=== PATIENT | male | born 1940 | race Two or more races ===

== ENCOUNTER 2024-09-30 17:58 | Inpatient (IN) | payer OTHER, MEDICAID ==
[~2024-09-30] VITALS: Ht 182.9 cm; Wt 72.7 kg
--- NOTE | 2024-09-30 18:24 | ED.PDOC ---
General HPI Comments 84 year old male presents to the emergency department via EMS with a chief complaint of urinary retention onset last night around 22:00. Patient states last time he urinated was last night around 22:00, since then has not been able to urinate. Patient is currently experiencing pelvic pain, rates pain 10/10. Denies any PMHx as well as nausea, vomiting, diarrhea, headache, dizziness,hematuria, fevers, chills, blurry vision. No other symptoms or modify ing factors present at this time. Chief Complaint: Urinary Time Seen by MD: 18:05 Reviewed notes: Medications, Allergies Allergies: Coded Allergies: NO KNOWN ALLERGIES (Unverified , 10/01/24) Information Source: Patient, Emergency Med Personnel Mode of Arrival: EMS Severity: Moderate Inability to void: Moderate Timing: Hours Duration: Since onset Has not urinated for: Hours Prehospital treatment: None Onset: Spontaneous Symptoms: Other History of: None Location: Suprapubic Penile discharge: None Modifying factors: None associated signs and symptoms: Other Vital Signs Vital Signs Date Time Temp Pulse Resp B/P (MAP) Pulse Ox O2 Delivery O2 Flow Rate FiO2 09/30/24 18:05 98.7 70 18 142/88 (106) 98 98.7 Physical Exam General: Awake, alert and oriented. No acute distress. Skin: Skin in warm, dry and intact. Appropriate color for ethnicity. HEENT: The head is normocephalic and atraumatic. Conjunctivae are clear without exudates or hemorrhage. Sclera is non-icteric. EOM are intact. No signs of nystagmus. Eyelids are normal in appearance without swelling or lesions. Oral mucosa is pink and moist Neck: The neck is supple with normal range of motion. No JVD. Cardiac: Heart rate and rhythm are normal. No murmurs, gallops, or rubs are auscultated. Respiratory: No signs of respiratory distress. Lung sounds are clear in all lobes bilaterally without rales, rhonchi, or wheezes. Abdominal: Abdomen is soft, with suprapubic tenderness and fullness without distention, guarding or rigidity. Bowel sounds are present and normoactive in all four quadrants. Extremities: Upper and lower extremities are atraumatic in appearance without deformity or edema. Neurological: The patient is awake, alert and oriented to person, place, and time with normal speech. Speech is clear. There is no facial asymmetry. Psychiatric: Appropriate mood and affect. Good judgement and insight. Review of Systems: REVIEW OF SYSTEMS: No fever, no chills, or fatigue HEENT: No sore throat, no earache, no congestion, no neck pain. Cardiac: No chest pain. No palpitations. Lungs: No shortness of breath, no cough. GI: No nausea, no vomiting, no diarrhea, no constipation, no abdominal pain : Positive difficulty urinating, decreased urine output. Positive pelvic pain. No dysuria, frequency, or urgency. No hematuria. Musculoskeletal: No joint pain , no joint swelling, no extremity edema. Skin: No rash, no itching. Neuro: No headache, no dizziness, no weakness Past Medical History PAST MEDICAL HISTORY: Denies Surgical History: Denies all surgeries Family History Family History: Reviewed,noncontributory to illness, No family hx of Cancer, No family hx of DM, No family hx of Heart evy, No family hx of HTN, No family hx ofKidney evy, No family hx of Liver evy, No family hx of Lung evy, No family hx of Stroke Social History Smoker: Non-Smoker Alcohol: Denies ETOH Use Drugs: Denies Drug Use Lives In: Home Was a procedure done? Was a procedure done?: No Differential Diagnosis Kidney stone (Female): N/A Urinary Problem (Male): Bladder Outlet, Bladder Obstruction, Prostatitis, Renal Failure, Urethritis, Urinary Retention, Urolithiasis, UTI, Other X-Ray, Labs, Meds, VS Vital Signs Date Time Temp Pulse Resp B/P (MAP) Pulse Ox O2 Delivery O2 Flow Rate FiO2 09/30/24 18:05 98.7 70 18 142/88 (106) 98 98.7 Lab Test 09/30/24 18:26 Range/Units White Blood Count 10.1 4.4-10.8 10^3/uL Red Blood Count 4.80 4.5-5.90 10^6/uL Hemoglobin 14.2 13.5-17.5 g/dL Hematocrit 42.3 41.0-53.0 % Mean Corpuscular Volume 88.3 80.0-100.0 fL Mean Corpuscular Hemoglobin 29.5 28.0-32.0 pg Mean Corpuscular Hemoglobin Concent 33.4 32.0-36.0 g/dL Red Cell Distribution Width 14.3 11.8-14.3 % Platelet Count 174 140-450 10^3/uL Mean Platelet Volume 8.9 6.9-10.8 fL Neutrophils (%) (Auto) 89.4 H 37.0-80.0 % Lymphocytes (%) (Auto) 5.6 L 10.0-50.0 % Monocytes (%) (Auto) 4.6 0.0-12.0 % Eosinophils (%) (Auto) 0.1 0.0-7.0 % Basophils (%) (Auto) 0.3 0.0-2.0 % Neutrophils # (Auto) 9.0 H 1.6-8.6 10 ^3/uL Lymphocytes # (Auto) 0.6 0.4-5.4 10 ^3/uL Monocytes # (Auto) 0.5 0-1.3 10 ^3/uL Eosinophils # (Auto) 0 0-0.8 10 ^3/uL Basophils # (Auto) 0 0-0.2 10 ^3/uL Nucleated Red Blood Cells 0.0 % Sodium Level 140 136-145 mmol/L Potassium Level 3.9 3.5-5.1 mmol/L Chloride Level 105 98-107 mmol/L Carbon Dioxide Level 23 20-31 mmol/L Anion Gap 12 5-15 Blood Urea Nitrogen 19 9-23 mg/dL Creatinine 1.39 H 0.700-1.30 mg/dL Glomerular Filtration Rate Calc 50 >90 mL/min BUN/Creatinine Ratio 13.7 10.0-20.0 Serum Glucose 143 H 74-106 mg/dL Calcium Level 10.4 8.7-10.4 mg/dL Time of 1ST Reevaluation: 18:35 Reevaluation 1ST: Unchanged Patient Education/Counseling: Need For Follow Up Family Education/Counseling: No Family Present SEPSIS Sepsis Screen Physician Orders Urinalysis (09/30/24 18:04) Bladder Scan (09/30/24 ) Insert Evans Catheter QSHIFT (09/30/24 18:09) Ct Ab Pel Wo Con-No Oral Or Iv (09/30/24 21:52) Vital Signs Date Time Temp Pulse Resp B/P (MAP) Pulse Ox O2 Delivery O2 Flow Rate FiO2 09/30/24 18:05 98.7 70 18 142/88 (106) 98 98.7 Laboratory Tests Test 09/30/24 18:26 White Blood Count 10.1 10^3/uL (4.4-10.8) Departure 1 Departure Time of Disposition: 19:38 Impression: Primary Impression: Urinary retention Additional Impression: TRACY (acute kidney injury) Disposition: 09 ADMITTED INPATIENT Condition: Stable Comments Evans catheter placed in the emergency department Patient admitted to hospitalist service for further treatment, evaluation and monitoring. Critical Care Note Critical Care Time?: No Stability Stability form required: No I personally scribed for FRANK PETTY MD ([email or web address]) on 09/30/24 at 18:24. Electronically submitted by Mary David ([email or web address]). FRANK PETTY MD Sep 30, 2024 18:24
[2024-09-30 18:47] LABS: Hematocrit 42.3 % (41.0-53.0); Hemoglobin 14.2 g/dL (13.5-17.5); Mean Corpuscular Hemoglobin 29.5 pg (28.0-32.0); Mean Corpuscular Volume 88.3 fL (80.0-100.0); Nucleated Red Blood Cells % 0.0 %
[2024-09-30 18:57] LABS: Chloride 105 mmol/L (98-107); Potassium 3.9 mmol/L (3.5-5.1); Sodium 140 mmol/L (136-145)
[2024-09-30 18:58] LABS: Anion Gap 12 (5-15); Carbon Dioxide 23 mmol/L (20-31)
[2024-09-30 19:03] LABS: BUN/Creatinine Ratio 13.7 (10.0-20.0); Blood Urea Nitrogen 19 mg/dL (9-23)
[2024-09-30 19:12] LABS: Calcium 10.4 mg/dL (8.7-10.4); Glucose 143 mg/dL (74-106)
--- NOTE | 2024-09-30 22:39 | DVH ---
Exam: CT CT AB PEL WO CON-NO ORAL OR IV History: urinary retention Comparison Study: None TECHNIQUE: Multidetector CT of the abdomen was performed from lung bases to pubic symphysis. Imaging was performed without IV contrast. Axial, coronal and sagittal multiplanar reformats were obtained fr om the axial data set by the technologist. Radiation Dose Information: CT Dose: CTDI volume is 5.54 mGy. Dose-length product is 321.92 mGy*cm FINDINGS: Evaluation of solid organs is limited due to lack of intravenous contrast use. Findings: Lung Bases: No acute or significant lung base finding. Normal heart size. No pleural or pericardial effusion. Liver: The liver is normal in size. No focal lesions. Gallbladder and Biliary Tree: Unremarkable Spleen: Unremarkable Pancreas: The pancreas is grossly normal in appearance. Adrenal Glands: Unremarkable Kidneys: Mild bilateral hydronephrosis. Bladder: 2.8 by 2.8 cm spiculated bladder calculus. Bladder measures 15.8 x 11.6 x 11.4 cm. Bowel: The stomach is grossly normal in appearance. Small bowel and colon are normal in caliber and d istribution. The appendix is not visualized; however, no secondary findings of acute appendicitis id entified. Ascites: Absent Lymphadenopathy: No mesenteric, retroperitoneal or periportal lymphadenopathy. Abdominal Wall and Mesentery: Unremarkable. Vasculature: The visualized abdominal aorta is normal in size and caliber. Evaluation of abdominal a nd pelvic vessels is limited due to lack of intravenous contrast. Pelvic Organs: Prostate measures 7.3 x 6.9 cm. Correlate with PSA. Musculoskeletal: No aggressive focal bony lesions, acute fractures or dislocation. Soft tissues: Unremarkable IMPRESSION: 1. Mild bilateral hydronephrosis 2. 2.8 x 2.8 cm spiculated bladder calculus. 3. Enlarged prostate measuring 6.9 x 7.3 cm correlate with PSA. 4. Bladder measures 15.8 by 11.4 x 11.6 cm. Radiation optimization: All CT scans at this facility use at least one of these dose optimization rush hniques: automated exposure control mA and/or kV adjustment per patient size (includes targeted exam s where dose is matched to clinical indication) or iterative reconstruction.
[2024-09-30] MEDS ORDERED: ACETAMINOPHEN 325 MG TAB PO PRN (23:30)
[2024-09-30] MEDS ORDERED: MORPHINE SULFATE INJ 2 MG/ml SYRG IV PRN (23:30)
[2024-09-30] MEDS ORDERED: ONDANSETRON HCL 4 MG/2 ML VIAL IV PRN (23:30)
[2024-10-01 00:18] LABS: INR 1.08 (0.9-1.15); Prothrombin Time 11.4 sec (9.3-11.8)
--- NOTE | 2024-10-01 00:21 | DVH ---
CHEST RADIOGRAPH Indication: admission Technique: Single frontal view of the chest was obtained Comparison: None FINDINGS: Lines and Tubes: None Lungs: No focal consolidation. Pleura: No effusion. No pneumothorax. Cardiomediastinal contours: Unremarkable Bones: No acute osseous abnormality. IMPRESSION: 1. No acute cardiopulmonary disease.
[2024-10-01] MEDS: HYDROcodone-ACET 5/325MG TAB PO PRN (03:32)
[2024-10-01 04:31] LABS: Hematocrit 45.3 % (41.0-53.0); Hemoglobin 15.1 g/dL (13.5-17.5); Mean Corpuscular Hemoglobin 29.6 pg (28.0-32.0); Mean Corpuscular Volume 88.5 fL (80.0-100.0); Nucleated Red Blood Cells % 0.0 %
[2024-10-01 04:41] LABS: Chloride 102 mmol/L (98-107); Potassium 4.5 mmol/L (3.5-5.1); Sodium 140 mmol/L (136-145)
[2024-10-01 04:42] LABS: Anion Gap 12 (5-15); Calcium 10.0 mg/dL (8.7-10.4); Carbon Dioxide 26 mmol/L (20-31)
--- NOTE | 2024-10-01 04:46 | DVHHP2 ---
Admitting Diagnosis: Spiculated Bladder Calculus, Acute Urinary Retention History of Present Illness History Source: Patient Exam Limitations: No limitations HPI Mr. Juan Catherine is an 84 year old male with no reported medical history who presents with a chief complaint of urinary retention onset night of Friday 09/29 around 22:00. Patient states since then has not been able to urinate. Patient is currently experiencing pelvic pain, rates pain 10/10. Denies vomiting, diarrhea, headache, dizziness,hematuria, fevers, chills, blurry vision. No other symptoms or modifying factors present at this time. Patient CT abdomen and pelvis resulted 1. Mild bilateral hydronephrosis 2. 2.8 x 2.8 cm spiculated bladder calculus. 3. Enlarged prostate measuring 6.9 x 7.3 cm correlate with PSA. 4. Bladder measures 15.8 by 11.4 x 11.6 cm. Patient admitted for further evaluation, treatment and urology consultation. Home Meds No Active Prescriptions or Reported Meds Past Medical History Cardiac: No pertinent Hx Pulmonary: No pertinent Hx Central Nervous System: No pertinent Hx GI: No pertinent Hx Hemotology/Oncology: No pertinent Hx Hepatobiliary: No pertinent Hx Psychiatric: No pertinent Hx Musculoskeletal: No pertinent Hx Rheumotologic: No pertinent Hx Infectious Disease: No peritnent Hx ENT: No pertinent Hx Renal/: No pertinent Hx Endocrine: No pertinent Hx Dermatology: No pertinent Hx Smoker: No Hx (Negative) Alocohol: None Drugs: None Domestic Violence: Neg Review of Systems Constitutional: No symptom reported Ears, Nose, & Throat: No symptom reported Eyes: No symptom reported Pulmonary/Respiratory: No symptom reported Cardiovascular: No symptom reported Gastrointestinal: Nausea, Other (lower abdominal pain, pressure ) Genitourinary: Dysuria, Retention Musculoskeletal: No symptom reported Skin: No symptom reported Psychiatric: No symptom reported Endocrine: No symptom reported Hemotologic/Lymphatic: No symptom reported H&P Exam Vital Signs Vital Signs Date Time Temp Pulse Resp B/P (MAP) Pulse Ox O2 Delivery O2 Flow Rate FiO2 09/30/24 18:05 98.7 70 18 142/88 (106) 98 98.7 General Appeara: Well developed, Well nourished, Mild distress Head Exam: Normal inspection Neck Exam: Normal inspection, Non-tender, Normal alignment Eye Exam: bilateral eye Normal inspection, bilateral eye PERRL, bilateral eye EOMI Ear Exam: bilateral ear Auricle normal Nasal Exam: Normal inspection Mouth: Normal Inspection Pulmonary/Respiratory: Normal inspection, Normal breath sounds, Chest non- tender, Lungs clear Cardiovascular/Chest: Normal inspection, Regular rate, Normal Rhythm Peripheral Pulses: 2+ dorsalis pedis (R), 2+ dorsalis pedis (L), 2+ Radial (R), 2+ Radial (L) Abdominal Exam: Normal bowel sounds, Soft, Other (lower abdominal distention ) Abdominal Pain Onset Location: Suprapubic Rectal Exam: Deferred Male 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: Normal hearing, Normal speech, PERRL Motor/Sensory: Normal sensory function, Normal motor function Neuro/Mental St: Alert, Oriented Appearance: Appropriate appearance, Appropriate insight Eye contact/ Speech: Cooperative, Good eye contact, Normal speech Thoughts/Psych: Normal thought pattern Skin Exam: Normal inspection, Normal color, Warm/dry SEPSIS Sepsis Screen Date sepsis recognized/suspect: Sep 30, 2024 Time Sepsis recognized/suspect: 1804 Recent Procedure: No On Antibiotic Therapy: No Respiratory Rate >20: No Heart Rate >90: No Temp<36 C (96.8 F) or >38.3 C: No SBP <90 or MAP <65 mmHG: No New Acute Mental Status Change: No Is the patient on CPAP, BIPAP,: No Physician Orders Ct Ab Pel Wo Con-No Oral Or Iv (09/30/24 21:52) Admit (09/30/24 23:23) * Urology Consult (09/30/24 23:23) Full Code (09/30/24 23:23) Urine Bacterial Culture (09/30/24 23:23) Psa Total+% Free (10/01/24 04:00) Basic Metabolic Panel (10/01/24 05:00) Basic Metabolic Panel (10/02/24 05:00) Stat Ekg For Chest Pain (09/30/24 23:23) Notify Md Of Changes From Base (09/30/24 23:23) Skirt Clipper For 24 Hours (09/30/24 23:23) Emergency Dysrhythmia Protocol (09/30/24 23:23) Rhythm Strips Once Every Shift (09/30/24 23:23) Oxygen By Nasal Cannula (09/30/24 23:23) Ondansetron Hcl (Zofran) (09/30/24 23:30) Morphine Sulfate Injection (09/30/24 23:30) Acetaminophen Tablet (Tylenol Tablet) (09/30/24 23:30) Famotidine Tablet (Pepcid Tablet) (10/01/24 10:00) Hydrocodone-Acet 5/325mg Tab (Clint 32 (09/30/24 23:30) Complete Blood Count (10/01/24 05:00) Complete Blood Count (10/02/24 05:00) Clear Liq Diet (10/01/24 Breakfast) Communication Order (09/30/24 23:32) Chest Xray 1 View (09/30/24 23:33) Sequential Compression Device (09/30/24 23:42) Strain All Urine For Stones (09/30/24 23:42) Laboratory Tests Test 09/30/24 18:26 10/01/24 04:05 White Blood Count 10.1 10^3/uL (4.4-10.8) 13.0 10^3/uL (4.4-10.8) #H Medications Medications Dose Ordered Sig/Wandy Route Start Time Stop Time Status Last Admin Dose Admin Acetaminophen/ Hydrocodone Bitart 1 tab Q6HPRN PRN PO 09/30/24 23:30 10/01/24 03:32 1 TAB Labs/Xrays Labs Test 10/01/24 04:05 09/30/24 23:48 Range/Units White Blood Count 13.0 #H 4.4-10.8 10^3/uL Red Blood Count 5.11 4.5-5.90 10^6/uL Hemoglobin 15.1 13.5-17.5 g/dL Hematocrit 45.3 41.0-53.0 % Mean Corpuscular Volume 88.5 80.0-100.0 fL Mean Corpuscular Hemoglobin 29.6 28.0-32.0 pg Mean Corpuscular Hemoglobin Concent 33.4 32.0-36.0 g/dL Red Cell Distribution Width 14.5 H 11.8-14.3 % Platelet Count 204 140-450 10^3/uL Mean Platelet Volume 9.1 6.9-10.8 fL Neutrophils (%) (Auto) 87.0 H 37.0-80.0 % Lymphocytes (%) (Auto) 5.3 L 10.0-50.0 % Monocytes (%) (Auto) 7.6 0.0-12.0 % Eosinophils (%) (Auto) 0.0 0.0-7.0 % Basophils (%) (Auto) 0.1 0.0-2.0 % Neutrophils # (Auto) 11.3 H 1.6-8.6 10 ^3/uL Lymphocytes # (Auto) 0.7 0.4-5.4 10 ^3/uL Monocytes # (Auto) 1.0 0-1.3 10 ^3/uL Eosinophils # (Auto) 0 0-0.8 10 ^3/uL Basophils # (Auto) 0 0-0.2 10 ^3/uL Nucleated Red Blood Cells 0.0 % Prothrombin Time 11.4 9.3-11.8 sec Prothrombin Time INR 1.08 0.9-1.15 Assessment/Plan Problem List: (1) Bladder calculus (2) Urinary retention (3) TRACY (acute kidney injury) Plan This is an 84 yo male with no reported medical history who presents to the hospital with urinary retention x 1 day. Patient found to have 1. Bladder Calculus 2. Bilateral Hydronephrosis 3. Acute Urinary Retention 4. Acute Kidney Injury Plan Admit Med Surgical Unit Urology Consultation Insert Evans catheter Strain all urine UA, urine culture Clear liquid diet PSA level, Monitor BMP, CBC Empiric IV antibiotic GI ppx DVT ppx SCD's BLE Discussed all above with patient who verbalizes agreement and understanding of care plan. All questions were answered. Discussed with supervising MD. Plan discussed with: Patient, Other Code Visit Code Visit Total Time (mins): 45 Additional Comments Additional Comments Additional Comments Patient's chart is reviewed and discussed with the nurse practitioner. Patient is seen evaluated and admitted by nurse practitioner earlier today. I agree with her evaluation, documentation, assessment and care plan as outlined. Also discussed with the urologist regarding care plan VANGIE HAMILTON Oct 01, 2024 04:46 SHALINI ECHEVERRIA MD Oct 01, 2024 16:05
[2024-10-01 04:47] LABS: BUN/Creatinine Ratio 14.9 (10.0-20.0); Blood Urea Nitrogen 25 mg/dL (9-23); Glucose 166 mg/dL (74-106)
[2024-10-01 07:33] LABS: Urine Protein, UAD TRACE (Negative)
[2024-10-01 08:00] VITALS: PULSE 63; RESP 10; O2SAT 96
[2024-10-01] MEDS: cefTRIAXone 1GM/50ML D5W 50 ML IV SCH (09:34)
[2024-10-01] MEDS: FAMOTIDINE 20 MG TAB PO SCH (10:01)
[2024-10-01 13:00] VITALS: BP 115/70; PULSE 95; RESP 73; TEMP 97.7; O2SAT 95
--- NOTE | 2024-10-01 15:17 | DVHINCON2 ---
Date of service: Oct 01, [address] Farmer Reason for Consultation bladder stone History of Present Illness History Source: Patient, RN Notes, MD Notes, Old Records Exam Limitations: No limitations HPI 84 yo otherwise healthy male with no prior surgical hx c/o sudden onset urinary retention starting 09/24/24. Pt was straining to get only a few drops out and his abdomen was firm and tender. Spicer was placed by ER staff. He is feeling much better and has no current complaint. CT showed bladder stone 2.8 cm x 2.8 cm. Prostate is enlarged. Home Meds No Active Prescriptions or Reported Meds Past Medical History Cardiac: No pertinent Hx Pulmonary: No pertinent Hx Central Nervous System: No pertinent Hx GI: No pertinent Hx Hemotology/Oncology: No pertinent Hx Hepatobiliary: No pertinent Hx Psychiatric: No pertinent Hx Musculoskeletal: No pertinent Hx Rheumotologic: No pertinent Hx Infectious Disease: No peritnent Hx ENT: No pertinent Hx Renal/: No pertinent Hx Endocrine: No pertinent Hx Dermatology: No pertinent Hx Past Surgical History: No pertinent Hx Patient Family History: Patient reports no known family medical history. Smoker: No Hx (Negative) Alocohol: None Drugs: None Domestic Violence: Neg Review of Systems Genitourinary: Retention H&P Exam Vital Signs Vital Signs Date Time Temp Pulse Resp B/P (MAP) Pulse Ox O2 Delivery O2 Flow Rate FiO2 10/01/24 13:00 97.7 95 73 115/70 (85) 95 97.7 10/01/24 11:40 Room Air* 0 21 General Appeara: Well developed, Well nourished, Normal Appearance Neuro/Mental St: Alert, Oriented Appearance: Appropriate appearance, Appropriate insight Eye contact/ Speech: Cooperative, Good eye contact, Normal speech Skin Exam: Normal inspection, Normal color, Warm/dry Labs/Xrays [address] [address] Ph: [phone] DIAGNOSTIC IMAGING Diagnostic Imaging Report : [id number] Signed PATIENT: VALERY HOFFMAN ACCT: [id number] UNIT: [id number] : 1940 LOC: ER ROOM / BED: / AGE / SEX: 84 / M ADM STATUS: REG ER SERVICE 51 ORDERING PHYSICIAN: HAMILTON,VANGIE D ASSISTANT GENERAL MANAGER PROCEDURE(s): ABPL - CT AB PEL WO CON-NO ORAL OR IV REASON: urinary retention ORDER NUMBER(s): [id number], ACCESSION NUMBER(s): [id number] Exam: CT CT AB PEL WO CON-NO ORAL OR IV History: urinary retention Comparison Study: None TECHNIQUE: Multidetector CT of the abdomen was performed from lung bases to pubic symphysis. Imaging was performed without IV contrast. Axial, coronal and sagittal multiplanar reformats were obtained from the axial data set by the technologist. Radiation Dose Information: CT Dose: CTDI volume is 5.54 mGy. Dose-length product is 321.92 mGy*cm FINDINGS: Evaluation of solid organs is limited due to lack of intravenous contrast use. Findings: Lung Bases: No acute or significant lung base finding. Normal heart size. No pleural or pericardial effusion. Liver: The liver is normal in size. No focal lesions. Gallbladder and Biliary Tree: Unremarkable Spleen: Unremarkable Pancreas: The pancreas is grossly normal in appearance. Adrenal Glands: Unremarkable Kidneys: Mild bilateral hydronephrosis. Bladder: 2.8 by 2.8 cm spiculated bladder calculus. Bladder measures 15.8 x 11.6 x 11.4 cm. Bowel: The stomach is grossly normal in appearance. Small bowel and colon are normal in caliber and distribution. The appendix is not visualized; however, no secondary findings of acute appendicitis identified. Ascites: Absent Lymphadenopathy: No mesenteric, retroperitoneal or periportal lymphadenopathy. Abdominal Wall and Mesentery: Unremarkable. Vasculature: The visualized abdominal aorta is normal in size and caliber. Evaluation of abdominal and pelvic vessels is limited due to lack of intravenous contrast. Pelvic Organs: Prostate measures 7.3 x 6.9 cm. Correlate with PSA. Musculoskeletal: No aggressive focal bony lesions, acute fractures or dislocation. Soft tissues: Unremarkable IMPRESSION: 1. Mild bilateral hydronephrosis 2. 2.8 x 2.8 cm spiculated bladder calculus. 3. Enlarged prostate measuring 6.9 x 7.3 cm correlate with PSA. 4. Bladder measures 15.8 by 11.4 x 11.6 cm. Radiation optimization: All CT scans at this facility use at least one of these dose optimization techniques: automated exposure control mA and/or kV adjustment per patient size (includes targeted exams where dose is matched to clinical indication) or iterative reconstruction. ATED BY: BEATRIZ BISWAS Jr., DO DICTATED DATE/TIME: 09/30/242235 SIGNED BY: BEATRIZ BISWAS Jr., SIGNED DATE/TIME: 09/30/242235 CC: Labs Test 10/01/24 05:00 10/01/24 04:05 09/30/24 23:48 Range/Units Urine Color Light-yellow Yellow Urine Clarity Clear Clear Urine pH 5.5 5.0-9.0 Urine Specific [place] 1.015 1.001-1.035 Urine Protein Trace H Negative Urine Ketones Negative Negative Urine Blood 1+ H Negative /uL Urine Nitrite Negative Negative Urine Bilirubin Negative Negative Urine Urobilinogen Normal Negative mg/dL Urine Leukocyte Esterase Negative Negative /uL Urine RBC 32 0 - 3 /hpf Urine Microscopic WBC 2 0-3 /HPF Urine Squamous Epithelial Cells Few <5 /hpf Urine Bacteria None seen None Seen /hpf Urine Mucus Few None Seen Urine Glucose Normal Normal mg/dL White Blood Count 13.0 #H 4.4-10.8 10^3/uL Red Blood Count 5.11 4.5-5.90 10^6/uL Hemoglobin 15.1 13.5-17.5 g/dL Hematocrit 45.3 41.0-53.0 % Mean Corpuscular Volume 88.5 80.0-100.0 fL Mean Corpuscular Hemoglobin 29.6 28.0-32.0 pg Mean Corpuscular Hemoglobin Concent 33.4 32.0-36.0 g/dL Red Cell Distribution Width 14.5 H 11.8-14.3 % Platelet Count 204 140-450 10^3/uL Mean Platelet Volume 9.1 6.9-10.8 fL Neutrophils (%) (Auto) 87.0 H 37.0-80.0 % Lymphocytes (%) (Auto) 5.3 L 10.0-50.0 % Monocytes (%) (Auto) 7.6 0.0-12.0 % Eosinophils (%) (Auto) 0.0 0.0-7.0 % Basophils (%) (Auto) 0.1 0.0-2.0 % Neutrophils # (Auto) 11.3 H 1.6-8.6 10 ^3/uL Lymphocytes # (Auto) 0.7 0.4-5.4 10 ^3/uL Monocytes # (Auto) 1.0 0-1.3 10 ^3/uL Eosinophils # (Auto) 0 0-0.8 10 ^3/uL Basophils # (Auto) 0 0-0.2 10 ^3/uL Nucleated Red Blood Cells 0.0 % Sodium Level 140 136-145 mmol/L Potassium Level 4.5 3.5-5.1 mmol/L Chloride Level 102 98-107 mmol/L Carbon Dioxide Level 26 20-31 mmol/L Anion Gap 12 5-15 Blood Urea Nitrogen 25 H 9-23 mg/dL Creatinine 1.68 H 0.700-1.30 mg/dL Glomerular Filtration Rate Calc 40 >90 mL/min BUN/Creatinine Ratio 14.9 10.0-20.0 Serum Glucose 166 H 74-106 mg/dL Calcium Level 10.0 8.7-10.4 mg/dL Prothrombin Time 11.4 9.3-11.8 sec Prothrombin Time INR 1.08 0.9-1.15 Assessment/Plan Problem List: (1) Urinary retention (2) TRACY (acute kidney injury) (3) Bladder calculus (4) Benign prostatic hyperplasia without lower urinary tract symptoms Plan d/c with spicer to leg bag outpt cystolitholapaxy TBA Plan discussed with: Patient, Other LIA GALARZA NP Oct 01, 2024 15:17
[2024-10-01 17:00] VITALS: BP 108/74; PULSE 63; RESP 15; TEMP 97.8; O2SAT 98
[2024-10-01] MEDS: SODIUM CHLORIDE 0.9% 1,000 ML IV SCH (17:47)
[2024-10-01 21:00] VITALS: BP 119/84; PULSE 69; RESP 18; TEMP 97.8; O2SAT 96
[2024-10-02 01:00] VITALS: BP 124/80; PULSE 68; RESP 18; TEMP 97.5; O2SAT 99
[2024-10-02 05:00] VITALS: BP 118/83; PULSE 65; RESP 18; TEMP 98.6; O2SAT 98
[2024-10-02 06:21] LABS: Potassium 4.8 mmol/L (3.5-5.1); Sodium 144 mmol/L (136-145)
[2024-10-02 06:22] LABS: Anion Gap 5 (5-15); Calcium 9.1 mg/dL (8.7-10.4); Carbon Dioxide 30 mmol/L (20-31)
[2024-10-02 06:27] LABS: BUN/Creatinine Ratio 15.1 (10.0-20.0); Blood Urea Nitrogen 19 mg/dL (9-23); Glucose 95 mg/dL (74-106)
[2024-10-02 06:39] LABS: Chloride 109 mmol/L (98-107)
[2024-10-02 06:44] LABS: Hematocrit 41.1 % (41.0-53.0); Hemoglobin 13.9 g/dL (13.5-17.5); Mean Corpuscular Hemoglobin 30.0 pg (28.0-32.0); Mean Corpuscular Volume 88.4 fL (80.0-100.0); Nucleated Red Blood Cells % 0.0 %
[2024-10-02 08:00] VITALS: PULSE 66
[2024-10-02 08:07] LABS: Prostate Specific Antigen 25.7 ng/mL (0.0-4.0)
[2024-10-02 08:39] VITALS: BP 126/83; PULSE 58; RESP 16; TEMP 97.6; O2SAT 97
--- NOTE | 2024-10-02 11:32 | DVHDS2 ---
Discharge Summary Date of Admission Sep 30, 2024 at 23:23 Date of Discharge: Oct 02, 2024 Labs/Diagnostic Data: Laboratory Results Test 10/02/24 05:22 10/01/24 05:00 10/01/24 04:05 09/30/24 23:48 White Blood Count 6.9 10^3/uL (4.4-10.8) Red Blood Count 4.65 10^6/uL (4.5-5.90) Hemoglobin 13.9 g/dL (13.5-17.5) Hematocrit 41.1 % (41.0-53.0) Mean Corpuscular Volume 88.4 fL (80.0-100.0) Mean Corpuscular Hemoglobin 30.0 pg (28.0-32.0) Mean Corpuscular Hemoglobin Concent 33.9 g/dL (32.0-36.0) Red Cell Distribution Width 14.2 % (11.8-14.3) Platelet Count 155 10^3/uL (140-450) Mean Platelet Volume 9.3 fL (6.9-10.8) Neutrophils (%) (Auto) 74.1 % (37.0-80.0) Lymphocytes (%) (Auto) 14.4 % (10.0-50.0) Monocytes (%) (Auto) 8.0 % (0.0-12.0) Eosinophils (%) (Auto) 3.0 % (0.0-7.0) Basophils (%) (Auto) 0.5 % (0.0-2.0) Neutrophils # (Auto) 5.1 10 ^3/uL (1.6-8.6) Lymphocytes # (Auto) 1.0 10 ^3/uL (0.4-5.4) Monocytes # (Auto) 0.6 10 ^3/uL (0-1.3) Eosinophils # (Auto) 0.2 10 ^3/uL (0-0.8) Basophils # (Auto) 0 10 ^3/uL (0-0.2) Nucleated Red Blood Cells 0.0 % Sodium Level 144 mmol/L (136-145) Potassium Level 4.8 mmol/L (3.5-5.1) Chloride Level 109 mmol/L (98-107) Carbon Dioxide Level 30 mmol/L (20-31) Anion Gap 5 (5-15) Blood Urea Nitrogen 19 mg/dL (9-23) Creatinine 1.26 mg/dL (0.700-1.30) Glomerular Filtration Rate Calc 56 mL/min (>90) BUN/Creatinine Ratio 15.1 (10.0-20.0) Serum Glucose 95 mg/dL (74-106) Calcium Level 9.1 mg/dL (8.7-10.4) Urine Color Light-yellow (Yellow) Urine Clarity Clear (Clear) Urine pH 5.5 (5.0-9.0) Urine Specific [place] 1.015 (1.001-1.035) Urine Protein Trace (Negative) Urine Ketones Negative (Negative) Urine Blood 1+ /uL (Negative) Urine Nitrite Negative (Negative) Urine Bilirubin Negative (Negative) Urine Urobilinogen Normal mg/dL (Negative) Urine Leukocyte Esterase Negative /uL (Negative) Urine RBC 32 /hpf (0 - 3) Urine Microscopic WBC 2 /HPF (0-3) Urine Squamous Epithelial Cells Few /hpf (<5) Urine Bacteria None seen /hpf (None Seen) Urine Mucus Few (None Seen) Urine Glucose Normal mg/dL (Normal) Prostate Specific Antigen Total 25.7 ng/mL (0.0-4.0) Prothrombin Time 11.4 sec (9.3-11.8) Prothrombin Time INR 1.08 (0.9-1.15) Other Laboratory Tests 10/02/24 05:22 Brief Hx & Hospital Course: Mr. Juan Catherine is an 84 year old male with no reported medical history who presents with a chief complaint of urinary retention onset night of Friday 09/29 around 22:00. Patient states since then has not been able to urinate. Patient is currently experiencing pelvic pain, rates pain 10/10. Denies vomiting, diarrhea, headache, dizziness,hematuria, fevers, chills, blurry vision. No other symptoms or modifying factors present at this time. Patient CT abdomen and pelvis resulted 1. Mild bilateral hydronephrosis 2. 2.8 x 2.8 cm spiculated bladder calculus. 3. Enlarged prostate measuring 6.9 x 7.3 cm correlate with PSA. 4. Bladder measures 15.8 by 11.4 x 11.6 cm. Patient admitted for further evaluation, treatment and urology consultation. He is admitted and noted to be in acute kidney failure with a obstructive uropathy. Spicer catheter is inserted and his kidney function has improved. He is evaluated by urologist recommended outpatient follow up with them in few weeks for prostate surgery as well as breaking down the bladder stone. Patient is counseled and educated regarding his Spicer catheter and adenoid prostate as well as bladder stone. He is advised to continue the medications as prescribed and home health is being arranged for Spicer care. Patient verbalized understanding of routine Spicer care, verbalized understanding his hospital diagnosis, treatment he received, discharge medications and agree with the discharge follow-up plan of care as outlined. Consults/Reason for consult Assessment/Plan Problem List: (1) Urinary retention (2) TRACY (acute kidney injury) (3) Bladder calculus (4) Benign prostatic hyperplasia without lower urinary tract symptoms Plan d/c with spicer to leg bag outpt cystolitholapaxy TBA Plan discussed with: Patient, Other LIA GALARZA NP Oct 01, 2024 15:17 Operations or Procedures Exam: CT CT AB PEL WO CON-NO ORAL OR IV History: urinary retention Comparison Study: None TECHNIQUE: Multidetector CT of the abdomen was performed from lung bases to pubic symphysis. Imaging was performed without IV contrast. Axial, coronal and sagittal multiplanar reformats were obtained from the axial data set by the technologist. Radiation Dose Information: CT Dose: CTDI volume is 5.54 mGy. Dose-length product is 321.92 mGy*cm FINDINGS: Evaluation of solid organs is limited due to lack of intravenous contrast use. Findings: Lung Bases: No acute or significant lung base finding. Normal heart size. No pleural or pericardial effusion. Liver: The liver is normal in size. No focal lesions. Gallbladder and Biliary Tree: Unremarkable Spleen: Unremarkable Pancreas: The pancreas is grossly normal in appearance. Adrenal Glands: Unremarkable Kidneys: Mild bilateral hydronephrosis. Bladder: 2.8 by 2.8 cm spiculated bladder calculus. Bladder measures 15.8 x 11.6 x 11.4 cm. Bowel: The stomach is grossly normal in appearance. Small bowel and colon are normal in caliber and distribution. The appendix is not visualized; however, no secondary findings of acute appendicitis identified. Ascites: Absent Lymphadenopathy: No mesenteric, retroperitoneal or periportal lymphadenopathy. Abdominal Wall and Mesentery: Unremarkable. Vasculature: The visualized abdominal aorta is normal in size and caliber. Evaluation of abdominal and pelvic vessels is limited due to lack of intravenous contrast. Pelvic Organs: Prostate measures 7.3 x 6.9 cm. Correlate with PSA. Musculoskeletal: No aggressive focal bony lesions, acute fractures or dislocation. Soft tissues: Unremarkable IMPRESSION: 1. Mild bilateral hydronephrosis 2. 2.8 x 2.8 cm spiculated bladder calculus. 3. Enlarged prostate measuring 6.9 x 7.3 cm correlate with PSA. 4. Bladder measures 15.8 by 11.4 x 11.6 cm. Radiation optimization: All CT scans at this facility use at least one of these dose optimization techniques: automated exposure control mA and/or kV adjustment per patient size (includes targeted exams where dose is matched to clinical indication) or iterative reconstruction. Condition at Discharge: Stable Final Diagnosis/Problems List Obstructive uropathy status post Spicer catheter placement, BPH, acute kidney injury resolved Discharge Disposition: Home Discharge Instruct/Medications Diet: Consistent carbohydrate, Cardiac 2g Na,low cholest Activity: No Restrictions, As Tolerated Follow Up/Referral: With the urologist Dr. Padilla you lay in 1-2 weeks for daughter stone removal and TURP procedure for large prostate Medications: Any home medications New Medications: Finasteride (Finasteride) 5 Mg Tab 1 TAB PO DAILY, #90 TAB 1 Refill Tamsulosin Hcl (Flomax) 0.4 Mg Cap 1 CAP PO QPM, #30 CAP Scheduled Finasteride (Finasteride), 1 TAB PO DAILY Tamsulosin Hcl (Flomax), 1 CAP PO QPM Discharge Statement: "Patient was advised to return to the ER or call 911 if any headaches, dizziness, shortness of breath, chest pain, abdominal pain, bleeding, fevers, or worsening of medical condition. Patient was counseled about treatment plan, medications, possible side effects, patientverbalized understanding. All questions were answered to the best of my ability. This discharge took greater then 30 minutes in planning, reviewing documentation, counseling the patient, and discussing with other team members." ASSESSMENT ASSESSMENT Assessment Obstructive uropathy status post Spicer catheter placement, BPH, acute kidney injury resolved SHALINI ECHEVERRIA MD Oct 02, 2024 11:32
[2024-10-02] MEDS ORDERED: TAMS-35 PO (12:42)
[2024-10-02] MEDS ORDERED: FINA5TAB4 PO (12:42)
[2024-10-02 12:59] VITALS: BP 134/95; PULSE 68; RESP 17; TEMP 98.1; O2SAT 96
[2024-10-02 13:15] VITALS: TEMP 36.7
== END 2024-10-02 14:10 | disposition home health service (06) | DRG 693 ==
LOC: EDBD 17:58 → ER 17:58 → OVERFLOW 23:23 → CENTRAL 10-01 14:20
PROVIDERS: ADMIT Nurse Practitioner Family; ATTEND Nurse Practitioner Family
DX: N21.0 Calculus in bladder (principal); N17.0 Acute kidney failure with tubular necrosis; N13.39 Other hydronephrosis; N40.1 Benign prostatic hyperplasia with lower urinary tract symptoms; R33.8 Other retention of urine; Z87.891 Personal history of nicotine dependence
CPT/HCPCS: 36415; 71045; 74176; 80048; 81001; 84154; 85025; 85610; 87086; 97163; G0378

== ENCOUNTER 2024-10-06 09:50 | Emergency (ER) | payer OTHER, MEDICAID ==
[~2024-10-06 09:50] MED LIST: FINA5TAB4 PO; TAMS-35 PO
== END 2024-10-06 10:30 | disposition left against medical advice (07) ==
LOC: ER 09:50
DX: Z44.8 Encounter for fitting and adjustment of other external prosthetic devices (principal); Z53.21 Procedure and treatment not carried out due to patient leaving prior to being seen by health care provider

== ENCOUNTER 2024-11-06 18:58 | Emergency (ER) | payer OTHER, MEDICAID ==
[~2024-11-06] VITALS: Ht 177.8 cm; Wt 72.7 kg
[2024-11-06 19:05] VITALS: BP 121/72; PULSE 84; RESP 15; TEMP 98.3; O2SAT 95
--- NOTE | 2024-11-06 20:13 | ED.PDOC ---
General HPI Comments 84-year-old male in the ED patient c/o spicer catheter issues, states spicer is not draining properly. Patient was recently seen here on 10/16/2024 and discharged with leg bag diagnosed with bladder stone and enlarge prostate. Prescribed Flomax and was to follow up with Urology. Patient states he does have an appointment with urologist but not until November 24. He states the Spicer isn't draining properly he notes suprapubic pain describes as pressure 10/10 on pain scale nonradiating. Patient does deny nausea, vomiting, flank pain, fever, chills, weakness, chest pain, difficulty breathing, shortness of breath. Chief Complaint: Urinary Time Seen by MD: 19:28 Reviewed notes: Nurses Notes, Medications, Allergies Allergies: Coded Allergies: NO KNOWN ALLERGIES (Unverified , 10/01/24) Home Meds Active Scripts Ciprofloxacin Hcl (Cipro) 500 Mg Tab, 500 MG PO BID for 7 Days, #14 TAB Prov:NEGRITA LOMBARDI 11/06/24 Tamsulosin Hcl (Flomax) 0.4 Mg Cap, 1 CAP PO QPM, #30 CAP Prov:SHALINI ECHEVERRIA MD 10/02/24 Finasteride (Finasteride) 5 Mg Tab, 1 TAB PO DAILY, #90 TAB 1 Refill Prov:SHALINI ECHEVERRIA MD 10/02/24 Information Source: Patient Mode of Arrival: EMS Past Medical History PAST MEDICAL HISTORY: Denies Surgical History: Denies all surgeries Family History Family History: Reviewed,noncontributory to illness, No family hx of Cancer, No family hx of DM, No family hx of Heart evy, No family hx of HTN, No family hx ofKidney evy, No family hx of Liver evy, No family hx of Lung evy, No family hx of Stroke Social History Smoker: Non-Smoker Alcohol: Denies ETOH Use Drugs: Denies Drug Use Lives In: Home All Other Systems: Reviewed and Negative (see hpi ) Physical Exam General Appearance: No Apparent Distress, Normal HEENT: Pharynx Normal Neck: Full Range of Motion Respiratory: Lungs Clear, No Respiratory Distress, Normal Breath Sounds Cardiovascular: No Edema, No JVD, No Murmur, No Gallop, Normal Peripheral Pulses, Regular Rate/Rhythm Breast Exam: Deferred Gastrointestinal: No Organomegaly, No Pulsatile Mass, Normal Bowel Sounds, Soft, Suprapubic (Moderate tenderness on palpation) Genitalia: Deferred Pelvic: Deferred Rectal: Deferred Extremities: Normal range of motion, No pedal edema Musculoskeletal : Apperance: Normal Neurologic: Alert, No Motor Deficits, Normal Affect, Normal Mood, No Sensory Deficits Cerebellar Function: Normal Reflexes: NOT DONE Skin: Dry, Normal Color, Warm Lymphatic: No Adenopathy Was a procedure done? Was a procedure done?: No Differential Diagnosis Kidney stone (Female): N/A Kidney stone (Male): N/A Urinary Problem (Male): Bladder Outlet, Bladder Obstruction, Prostatitis, Plelonephritis, Urethritis, Urinary Retention, Urolithiasis, UTI X-Ray, Labs, Meds, VS Vital Signs Date Time Temp Pulse Resp B/P (MAP) Pulse Ox O2 Delivery O2 Flow Rate FiO2 11/06/24 21:26 Room Air 11/06/24 19:05 98.3 84 15 121/72 95 98.3 X-Ray, Labs, Meds, VS Comment Spicer catheter attempt to flush filled. Spicer catheter was replaced with 16 Uzbek coude. Moderate amount of return and hematuria flushed with 100 mL noted no clots patient states pain has resolved in his requesting discharge at this time. Advised to continue Flomax and keep schedule an appointment with the urologist. Advised to call his PCP in two days for follow up. We will script trial of Cipro 500 mg twice daily x7 days consider acute prostatitis bacterial. ER return precautions given patient indicates understanding and agrees with discharge plan of care. Time of 1ST Reevaluation: 20:12 Reevaluation 1ST: Unchanged Time of 2ND Reevaluation: 21:16 Reevaluation 2ND: Improved Patient Education/Counseling: Diagnosis, Treatment, Prognosis, Need For Follow Up Family Education/Counseling: No Family Present SEPSIS Sepsis Screen Date sepsis recognized/suspect: Nov 06, 2024 Time Sepsis recognized/suspect: 1904 Recent Procedure: No On Antibiotic Therapy: No Respiratory Rate >20: No Heart Rate >90: No Temp<36 C (96.8 F) or >38.3 C: No SBP <90 or MAP <65 mmHG: No New Acute Mental Status Change: No Is the patient on CPAP, BIPAP,: No Physician Orders D/C Spicer (11/06/24 21:14) Insert/Manage Urinary Catheter QSHIFT (11/06/24 21:14) Vital Signs Date Time Temp Pulse Resp B/P (MAP) Pulse Ox O2 Delivery O2 Flow Rate FiO2 11/06/24 21:26 Room Air 11/06/24 19:05 98.3 84 15 121/72 95 98.3 Departure 1 Departure Time of Disposition: 21:16 Impression: Primary Impression: Bladder calculus Additional Impressions: Benign prostatic hyperplasia without lower urinary tract symptoms Obstructed Spicer catheter Qualified Codes: T83.091A - Other mechanical complication of indwelling urethral catheter, initial encounter Disposition: HOME / SELF CARE / HOMELESS Condition: Stable e-Prescriptions Ciprofloxacin Hcl (Cipro) 500 Mg Tab 500 MG PO BID for 7 Days, #14 TAB Prov: NEGRITA LOMBARDI 11/06/24 Discharged With: Self Critical Care Note Critical Care Time?: No Stability Stability form required: NEGRITA Molina Nov 06, 2024 20:13
[2024-11-06] MEDS ORDERED: CIPR-173 PO (21:17)
== END 2024-11-06 21:35 | disposition home or self-care (01) ==
LOC: EDBD 18:58 → EDUNIT# 18:58 → ER 19:04
DX: T83.091A Other mechanical complication of indwelling urethral catheter, initial encounter (principal); N40.0 Benign prostatic hyperplasia without lower urinary tract symptoms; N21.0 Calculus in bladder; Z79.899 Other long term (current) drug therapy; Y84.8 Other medical procedures as the cause of abnormal reaction of the patient, or of later complication, without mention of misadventure at the time of the procedure; Y92.89 Other specified places as the place of occurrence of the external cause
CPT/HCPCS: 51702; 99284; A4315

== ENCOUNTER 2024-11-18 15:06 | Emergency (ER) | payer MEDICARE, MEDICAID ==
[~2024-11-18] VITALS: Ht 182.9 cm; Wt 67.3 kg
[2024-11-18 15:12] VITALS: BP 116/77; PULSE 86; RESP 20; TEMP 98.2; O2SAT 96
[2024-11-18 15:50] LABS: Hematocrit 38.3 % (41.0-53.0); Hemoglobin 12.9 g/dL (13.5-17.5); Mean Corpuscular Hemoglobin 29.2 pg (28.0-32.0); Mean Corpuscular Volume 86.9 fL (80.0-100.0); Nucleated Red Blood Cells % 0.0 %
[2024-11-18 16:09] LABS: Potassium 4.4 mmol/L (3.5-5.1); Sodium 145 mmol/L (136-145)
[2024-11-18 16:10] LABS: Anion Gap 9 (5-15); Carbon Dioxide 27 mmol/L (20-31); Chloride 109 mmol/L (98-107)
[2024-11-18 16:11] LABS: Calcium 9.3 mg/dL (8.7-10.4)
[2024-11-18 16:15] LABS: BUN/Creatinine Ratio 21.2 (10.0-20.0)
[2024-11-18 16:16] LABS: Blood Urea Nitrogen 24 mg/dL (9-23); Glucose 156 mg/dL (74-106)
--- NOTE | 2024-11-18 17:23 | ED.PDOC ---
History of Present Illness HPI Comments 84-year-old male presents with chief complaint of urinary retention. Patient endorses on onset of symptoms after his acute Evans catheter became dislodged, yesterday. He now inquires replacement of said catheter. Denial of any further acute associated symptoms at this time. Chief Complaint: Urinary Time Seen by MD: 16:50 Reviewed Notes: Nurses Notes, Medications, Allergies Allergies: Coded Allergies: NO KNOWN ALLERGIES (Unverified , 10/01/24) Home Meds Active Scripts Tamsulosin Hcl (Flomax) 0.4 Mg Cap, 1 CAP PO QPM, #30 CAP Prov:SHALINI ECHEVERRIA MD 10/02/24 Finasteride (Finasteride) 5 Mg Tab, 1 TAB PO DAILY, #90 TAB 1 Refill Prov:SHALINI ECHEVERRIA MD 10/02/24 Discontinued Scripts Ciprofloxacin Hcl (Cipro) 500 Mg Tab, 500 MG PO BID for 7 Days, #14 TAB Prov:NEGRITA LOMBARDI 11/06/24 Information Source: Patient Mode of Arrival: Ambulatory Severity: Moderate Timing: Days Duration: Since onset Prehospital treatment: None Past Medical History Past Medical History (Other): BPH Surgical History (Other): Evans catheter Family History Family History: Reviewed,noncontributory to illness, No family hx of Cancer, No family hx of DM, No family hx of Heart evy, No family hx of HTN, No family hx ofKidney evy, No family hx of Liver evy, No family hx of Lung evy, No family hx of Stroke Social History Smoker: Non-Smoker Alcohol: Denies ETOH Use Drugs: Denies Drug Use Lives In: Home All Other Systems: Reviewed and Negative (Comprehensive systems review obtained and negative except for what is stated in the HPI.) Physical Exam General Appearance: Moderate Distress, Thin HEENT: Normal ENT Inspection, Pharynx Normal, TMs Normal Neck: Full Range of Motion, Non-Tender, Normal, Normal Inspection Respiratory: Chest Non-Tender, Lungs Clear, No Accessory Muscle Use, No Respiratory Distress, Normal Breath Sounds Cardiovascular: No Edema, No JVD, No Murmur, No Gallop, Normal Peripheral Pulses, Regular Rate/Rhythm Breast Exam: Deferred Gastrointestinal: No Organomegaly, Non Tender, No Pulsatile Mass, Normal Bowel Sounds, Soft Genitalia: Deferred Pelvic: Deferred Rectal: Deferred Extremities: No calf tenderness, Normal capillary refill, Normal inspection, Normal range of motion, Non-tender, No pedal edema Musculoskeletal : Apperance: Normal Neurologic: Alert, data entry manager II-XII nml as Tested, No Motor Deficits, Normal Affect, Normal Mood, No Sensory Deficits Cerebellar Function: Normal Reflexes: Normal Skin: Dry, Normal Color, Warm Peripheral Pulses: 3+ Radial (R), 3+ Radial (L) Lymphatic: No Adenopathy Was a procedure done? Was a procedure done?: No Differential Dx Considerations may include: Bladder calculi, prostatitis, epididymitis, nephrolithiasis, Evans catheter complication, among others X-Ray, Labs, Meds, VS Vital Signs Date Time Temp Pulse Resp B/P (MAP) Pulse Ox O2 Delivery O2 Flow Rate FiO2 11/18/24 15:12 98.2 86 20 116/77 96 98.2 Lab Test 11/18/24 15:28 Range/Units White Blood Count 6.5 4.4-10.8 10^3/uL Red Blood Count 4.41 L 4.5-5.90 10^6/uL Hemoglobin 12.9 L 13.5-17.5 g/dL Hematocrit 38.3 L 41.0-53.0 % Mean Corpuscular Volume 86.9 80.0-100.0 fL Mean Corpuscular Hemoglobin 29.2 28.0-32.0 pg Mean Corpuscular Hemoglobin Concent 33.6 32.0-36.0 g/dL Red Cell Distribution Width 14.8 H 11.8-14.3 % Platelet Count 213 140-450 10^3/uL Mean Platelet Volume 8.7 6.9-10.8 fL Neutrophils (%) (Auto) 75.7 37.0-80.0 % Lymphocytes (%) (Auto) 16.7 10.0-50.0 % Monocytes (%) (Auto) 6.3 0.0-12.0 % Eosinophils (%) (Auto) 0.6 0.0-7.0 % Basophils (%) (Auto) 0.7 0.0-2.0 % Neutrophils # (Auto) 4.9 1.6-8.6 10 ^3/uL Lymphocytes # (Auto) 1.1 0.4-5.4 10 ^3/uL Monocytes # (Auto) 0.4 0-1.3 10 ^3/uL Eosinophils # (Auto) 0 0-0.8 10 ^3/uL Basophils # (Auto) 0 0-0.2 10 ^3/uL Nucleated Red Blood Cells 0.0 % Sodium Level 145 136-145 mmol/L Potassium Level 4.4 3.5-5.1 mmol/L Chloride Level 109 H 98-107 mmol/L Carbon Dioxide Level 27 20-31 mmol/L Anion Gap 9 5-15 Blood Urea Nitrogen 24 H 9-23 mg/dL Creatinine 1.13 0.700-1.30 mg/dL Glomerular Filtration Rate Calc 64 >90 mL/min BUN/Creatinine Ratio 21.2 H 10.0-20.0 Serum Glucose 156 H 74-106 mg/dL Calcium Level 9.3 8.7-10.4 mg/dL Troponin I High Sensitivity < 3 L </=54 ng/L Patient alert. Vitals stable. Unable to urinate. Answering all questions. Ambulating. Possible prostate. Placed a Evans catheter. Blood sugar elevated. Establish intravenous access. Was given fluids. Urology consultation. Explained to the patient. Continue monitoring. Time of 1ST Reevaluation: 17:20 Reevaluation 1ST: Unchanged Patient Education/Counseling: Diagnosis, Treatment, Need For Follow Up Family Education/Counseling: No Family Present SEPSIS Sepsis Screen Date sepsis recognized/suspect: Nov 18, 2024 Time Sepsis recognized/suspect: 1511 Recent Procedure: No On Antibiotic Therapy: No Respiratory Rate >20: No Heart Rate >90: No Temp<36 C (96.8 F) or >38.3 C: No SBP <90 or MAP <65 mmHG: No New Acute Mental Status Change: No Is the patient on CPAP, BIPAP,: No Physician Orders Urinalysis (11/18/24 15:20) Insert Evans Catheter QSHIFT (11/18/24 17:19) Vital Signs Date Time Temp Pulse Resp B/P (MAP) Pulse Ox O2 Delivery O2 Flow Rate FiO2 11/18/24 15:12 98.2 86 20 116/77 96 98.2 Laboratory Tests Test 11/18/24 15:28 White Blood Count 6.5 10^3/uL (4.4-10.8) Departure 1 Departure Time of Disposition: 17:35 Impression: Primary Impression: Urinary retention Additional Impressions: Prostate hypertrophy Uncontrolled diabetes mellitus Qualified Codes: E13.65 - Other specified diabetes mellitus with hyperglycemia Disposition: ADMITTED INPATIENT Admit to: Med Surg Condition: Guarded Critical Care Note Critical Care Time?: No Stability Stability form required: No Heart Score Heart Score: Heart Score Response (Comments) Value History N/A 0 EKG N/A 0 Age N/A 0 Risk Factors N/A 0 Troponin N/A 0 Total 0 I personally scribed for HERNESTO MASTERSON MD ([email or web address]) on 11/18/24 at 17:23. Electronically submitted by Wilmer Prescott ([email or web address]). HERNESTO MASTERSON MD Nov 18, 2024 17:23
[2024-11-18] MEDS ORDERED: SODIUM CHLORIDE 0.9% 1,000 ML IV ONE (17:45)
[2024-11-18] MEDS ORDERED: NITR-87 PO (21:31)
== END 2024-11-18 20:13 | disposition left against medical advice (07) ==
LOC: ER 15:06
DX: N40.0 Benign prostatic hyperplasia without lower urinary tract symptoms (principal); R33.9 Retention of urine, unspecified; E11.65 Type 2 diabetes mellitus with hyperglycemia; Z79.899 Other long term (current) drug therapy
CPT/HCPCS: 36415; 51702; 80048; 84484; 85025

== ENCOUNTER 2024-11-18 20:17 | Emergency (ER) | payer MEDICARE, MEDICAID ==
[~2024-11-18] VITALS: Ht 182.9 cm; Wt 70.5 kg
--- NOTE | 2024-11-18 20:30 | ED.PDOC ---
General HPI Comments 84 year old male presents to the ED via EMS with a chief complaint of urinary retention onset today. Patient was seen in this ED 11/06/24, had Evans catheter changed, yesterday believes he accidently dislodged catheter in his sleep. He was seen in this ED earlier today for same symptoms, was admitted, left prior to admission. Patient called 911 due to suprapubic pain worsening. Denies any PMHx. Patient is a poor historian. No other symptoms or modifying factors present at this time. Chief Complaint: Urinary Time Seen by MD: 20:25 Reviewed notes: Medications, Allergies Allergies: Coded Allergies: NO KNOWN ALLERGIES (Unverified , 10/01/24) Home Meds Active Scripts Nitrofurantoin Monohydrate Mac (Macrobid) 100 Mg Cap, 100 MG PO BID for 10 Days, #20 CAP Prov:ANNAMARIA MENA MD 11/18/24 Tamsulosin Hcl (Flomax) 0.4 Mg Cap, 1 CAP PO QPM, #30 CAP Prov:SHALINI ECHEVERRIA MD 10/02/24 Finasteride (Finasteride) 5 Mg Tab, 1 TAB PO DAILY, #90 TAB 1 Refill Prov:SHALINI ECHEVERRIA MD 10/02/24 Discontinued Scripts Ciprofloxacin Hcl (Cipro) 500 Mg Tab, 500 MG PO BID for 7 Days, #14 TAB Prov:NEGRITA LOMBARDI 11/06/24 Information Source: Patient, Emergency Med Personnel Mode of Arrival: EMS Severity: Moderate Timing: Hours Duration: Since onset Has not urinated for: Hours Prehospital treatment: None Onset: Spontaneous Symptoms: Other Past Medical History PAST MEDICAL HISTORY: Denies Surgical History: Denies all surgeries Family History Family History: Reviewed,noncontributory to illness, No family hx of Cancer, No family hx of DM, No family hx of Heart evy, No family hx of HTN, No family hx ofKidney evy, No family hx of Liver evy, No family hx of Lung evy, No family hx of Stroke Social History Smoker: Non-Smoker Alcohol: Denies ETOH Use Drugs: Denies Drug Use Lives In: Home Constitutional: denies: chills, diaphoresis, fatigue, fever, malaise, sweats, weakness, others EENTM: denies: blurred vision, double vision, ear bleeding, ear discharge, ear drainage, ear pain, ear ringing, eye pain, eye redness, hearing loss, mouth pain, mouth swelling, nasal discharge, nose bleeding, nose congestion, nose pain, photophobia, tearing, throat pain, throat swelling, voice changes, others Respiratory: denies: cough, hemoptysis, orthopnea, SOB at rest, shortness of breath, SOB with excertion, stridor, wheezing, others Cardiovascular: denies: chest pain, dizzy spells, diaphoresis, Dyspnea on exertion, edema, irregular heart beat, left arm pain, lightheadedness, pa lpitations, PND, syncope, others Gastrointestinal: reports: abdominal pain; denies: abdomen distended, blood streaked bowels, constipated, diarrhea, dysphagia, difficulty swallowing, hematemesis, melena, nausea, poor appetite, poor fluid intake, rectal bleeding, rectal pain, vomiting, others Genitourinary: reports: others (retention); denies: burning, dysuria, flank pain, frequency, hematuria, incontinence, penile discharge, penile sore, pain, testicle pain, testicle swelling, urgency Neurological: denies: dizziness, fainting, headache, left sided numbness, left sided weakness, numbness, paresthesia, pre-existing deficit, right sided numbness, right sided weakness, seizure, speech problems, tingling, tremors, weakness, others Musculoskeletal: denies: back pain, gout, joint pain, joint swelling, muscle pain, muscle stiffness, neck pain, others Integumetry: denies: bruises, change in color, change in hair/nails, dryness, laceration, lesions, lumps, rash, wounds, others Allergic/Immunocompromised: denies: Difficulty Healing, Frequent Infections, Hives, Itching, others Hematologic/Lymphatic: denies: anemia, blood clots, easy bleeding, easy bruising, swollen glands, others Endocrine: denies: excessive hunger, excessive sweating, excessive thirst, excessive urination, flushing, intolerance to cold, intolerance to heat, unexplained weight gain, unexplained weight loss, others Psychiatric: denies: anxiety, bipolar disorder, depression, hopeless, panic disorder, schizophrenia, sleepless, suicidal, others All Other Systems: Reviewed and Negative Physical Exam General Appearance: No Apparent Distress, Normal HEENT: Normal ENT Inspection, Pharynx Normal, TMs Normal Neck: Full Range of Motion, Non-Tender, Normal, Normal Inspection Respiratory: Chest Non-Tender, Lungs Clear, No Accessory Muscle Use, No Respiratory Distress, Normal Breath Sounds Cardiovascular: No Edema, No JVD, No Murmur, No Gallop, Normal Peripheral Pulses, Regular Rate/Rhythm Breast Exam: Deferred Gastrointestinal: No Organomegaly, Non Tender, No Pulsatile Mass, Normal Bowel Sounds, Soft Genitalia: Deferred Pelvic: Deferred Rectal: Deferred Extremities: No calf tenderness, Normal capillary refill, Normal inspection, Normal range of motion, Non-tender, No pedal edema Musculoskeletal : Apperance: Normal Neurologic: Alert, 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 Was a procedure done?: No Differential Diagnosis Kidney stone (Female): Appendicitis, Bowel obstruction, Pancreatitis, Renal failure, Urinary obstruction, Urolithiasis, Other X-Ray, Labs, Meds, VS Vital Signs Date Time Temp Pulse Resp B/P (MAP) Pulse Ox O2 Delivery O2 Flow Rate FiO2 11/18/24 23:59 98.0 80 20 110/84 (93) 98 98.0 11/18/24 20:25 98.4 86 14 136/81 96 98.4 11/18/24 20:22 81 Lab Test 11/18/24 21:20 11/18/24 20:47 Range/Units Urine Color Light-orange Yellow Urine Clarity Ex.turbid Clear Urine pH 8.5 5.0-9.0 Urine Specific [place] 1.020 1.001-1.035 Urine Protein 2+ H Negative Urine Ketones Negative Negative Urine Blood 1+ H Negative /uL Urine Nitrite Negative Negative Urine Bilirubin Negative Negative Urine Urobilinogen Normal Negative mg/dL Urine Leukocyte Esterase 3+ Negative /uL Urine RBC 71 0 - 3 /hpf Urine Microscopic WBC 630 H 0-3 /HPF Urine Squamous Epithelial Cells None seen <5 /hpf Urine Bacteria None seen None Seen /hpf Urine Mucus Few None Seen Urine Yeast (Budding) Occasional None Seen /hpf Urine Glucose Normal Normal mg/dL White Blood Count 11.3 #H 4.4-10.8 10^3/uL Red Blood Count 4.45 L 4.5-5.90 10^6/uL Hemoglobin 13.0 L 13.5-17.5 g/dL Hematocrit 39.3 L 41.0-53.0 % Mean Corpuscular Volume 88.4 80.0-100.0 fL Mean Corpuscular Hemoglobin 29.1 28.0-32.0 pg Mean Corpuscular Hemoglobin Concent 32.9 32.0-36.0 g/dL Red Cell Distribution Width 14.4 H 11.8-14.3 % Platelet Count 211 140-450 10^3/uL Mean Platelet Volume 8.9 6.9-10.8 fL Neutrophils (%) (Auto) 84.3 H 37.0-80.0 % Lymphocytes (%) (Auto) 9.2 L 10.0-50.0 % Monocytes (%) (Auto) 5.5 0.0-12.0 % Eosinophils (%) (Auto) 0.6 0.0-7.0 % Basophils (%) (Auto) 0.4 0.0-2.0 % Neutrophils # (Auto) 9.5 H 1.6-8.6 10 ^3/uL Lymphocytes # (Auto) 1.0 0.4-5.4 10 ^3/uL Monocytes # (Auto) 0.6 0-1.3 10 ^3/uL Eosinophils # (Auto) 0.1 0-0.8 10 ^3/uL Basophils # (Auto) 0 0-0.2 10 ^3/uL Nucleated Red Blood Cells 0.0 % Sodium Level 144 136-145 mmol/L Potassium Level 4.4 3.5-5.1 mmol/L Chloride Level 109 H 98-107 mmol/L Carbon Dioxide Level 24 20-31 mmol/L Anion Gap 11 5-15 Blood Urea Nitrogen 16 9-23 mg/dL Creatinine 1.21 0.700-1.30 mg/dL Glomerular Filtration Rate Calc 59 >90 mL/min BUN/Creatinine Ratio 13.2 10.0-20.0 Serum Glucose 124 H 74-106 mg/dL Calcium Level 9.5 8.7-10.4 mg/dL Current Medications Medications (Trade) Dose Ordered Sig/Wandy Route Start Time Stop Time Status Last Admin Ceftriaxone Sodium (Rocephin W Lidocaine IM) 1 gm ONCE ONCE IM 11/18/24 21:30 11/18/24 21:31 DC 11/18/24 23:37 Time of 1ST Reevaluation: 20:55 Reevaluation 1ST: Unchanged Patient Education/Counseling: Diagnosis, Treatment Family Education/Counseling: No Family Present SEPSIS Sepsis Screen Physician Orders Insert Evans Catheter QSHIFT (11/18/24 20:25) Ok To Send Pt Home With Evans (11/18/24 20:25) Insert/Manage Urinary Catheter QSHIFT (11/18/24 20:25) Check Blood Glucose (11/18/24 20:27) Urine Bacterial Culture (11/18/24 21:26) Vital Signs Date Time Temp Pulse Resp B/P (MAP) Pulse Ox O2 Delivery O2 Flow Rate FiO2 11/18/24 23:59 98.0 80 20 110/84 (93) 98 98.0 11/18/24 20:25 98.4 86 14 136/81 96 98.4 11/18/24 20:22 81 Laboratory Tests Test 11/18/24 20:47 White Blood Count 11.3 10^3/uL (4.4-10.8) #H Medications Medications Dose Ordered Sig/Wandy Route Start Time Stop Time Status Last Admin Dose Admin Ceftriaxone Sodium 1 gm ONCE ONCE IM 11/18/24 21:30 11/18/24 21:31 DC 11/18/24 23:37 Departure 1 Departure Time of Disposition: 23:00 Impression: Primary Impression: Urinary retention Additional Impression: UTI (urinary tract infection) Disposition: 01 HOME / SELF CARE / HOMELESS Condition: Stable e-Prescriptions Nitrofurantoin Monohydrate Mac (Macrobid) 100 Mg Cap 100 MG PO BID for 10 Days, #20 CAP Prov: ANNAMARIA MENA MD 11/18/24 Discharged With: Self Critical Care Note Critical Care Time?: No Stability Stability form required: No I personally scribed for ANNAMARIA MENA MD ([email or web address]) on 11/18/24 at 20:30. Electronically submitted by Mary David ([email or web address]). ANNAMARIA MENA MD Nov 18, 2024 20:30
--- NOTE | 2024-11-18 21:03 | ECG ---
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
[2024-11-18 21:11] LABS: Hematocrit 39.3 % (41.0-53.0); Hemoglobin 13.0 g/dL (13.5-17.5); Mean Corpuscular Hemoglobin 29.1 pg (28.0-32.0); Mean Corpuscular Volume 88.4 fL (80.0-100.0); Nucleated Red Blood Cells % 0.0 %
[2024-11-18 21:17] LABS: Potassium 4.4 mmol/L (3.5-5.1); Sodium 144 mmol/L (136-145)
[2024-11-18 21:18] LABS: Anion Gap 11 (5-15); Carbon Dioxide 24 mmol/L (20-31)
[2024-11-18 21:19] LABS: Calcium 9.5 mg/dL (8.7-10.4)
[2024-11-18 21:20] LABS: Chloride 109 mmol/L (98-107)
[2024-11-18 21:23] LABS: BUN/Creatinine Ratio 13.2 (10.0-20.0); Blood Urea Nitrogen 16 mg/dL (9-23)
[2024-11-18 21:26] LABS: Glucose 124 mg/dL (74-106)
[2024-11-18] MEDS ORDERED: NITR-87 PO (21:31)
[2024-11-18 21:36] LABS: Urine Budding Yeast OCCASIONAL /hpf (None Seen); Urine Protein, UAD 2+ (Negative)
[2024-11-18] MEDS: cefTRIAXone W LIDOCAINE 1 GM IM IM ONE (23:37)
[2024-11-18] MEDS ORDERED: cefTRIAXone SOD 1,000 MG VL ONE (23:40)
[2024-11-18 23:59] VITALS: BP 110/84; PULSE 80; RESP 20; TEMP 98; O2SAT 98
== END 2024-11-19 | disposition home or self-care (01) ==
LOC: ER 20:17 → EDBD 20:17 → ER 11-19
DX: N39.0 Urinary tract infection, site not specified (principal); Z79.899 Other long term (current) drug therapy
CPT/HCPCS: 36415; 80048; 81001; 85025; 87086; 93005; 96372; 99284; J0696

== ENCOUNTER 2024-11-22 15:00 | Emergency (ER) | payer MEDICARE, MEDICAID ==
[~2024-11-22] VITALS: Ht 182.9 cm; Wt 70.0 kg
[~2024-11-22 15:00] MED LIST changes: +NITR-87 PO
--- NOTE | 2024-11-22 16:25 | ED.PDOC ---
History of Present Illness HPI Comments 84M presents to the ER w/ prior MHx of an enlarged prostate and the c/c of urinary retention. Pt reports on having his urinary retention starting 3 months ago. Pt states on not being able to urinate 3 days ago and had his catheter taken out after. The pt was unable to urinate today. Denies chills, fever, N/V /D, SOB, CP. Denies any other associated symptom's, modifiers, or recent injuries or sick contact at this time. Chief Complaint: Urinary Time Seen by MD: 16:20 Reviewed Notes: Nurses Notes, Medications, Allergies Allergies: Coded Allergies: NO KNOWN ALLERGIES (Unverified , 10/01/24) Home Meds Active Scripts Nitrofurantoin Monohydrate Mac (Macrobid) 100 Mg Cap, 100 MG PO BID for 10 Days, #20 CAP Prov:ANNAMARIA MENA MD 11/18/24 Tamsulosin Hcl (Flomax) 0.4 Mg Cap, 1 CAP PO QPM, #30 CAP Prov:SHALINI ECHEVERRIA MD 10/02/24 Finasteride (Finasteride) 5 Mg Tab, 1 TAB PO DAILY, #90 TAB 1 Refill Prov:SHALINI ECHEVERRIA MD 10/02/24 Information Source: Patient Mode of Arrival: Ambulatory Severity: Moderate Timing: Months Duration: Since onset Prehospital treatment: None Past Medical History Past Medical History (Other): enlarged prostate Surgical History: Denies all surgeries Family History Family History: Reviewed,noncontributory to illness, Unknown Social History Smoker: Non-Smoker Alcohol: Denies ETOH Use Drugs: Denies Drug Use Lives In: Home Constitutional: denies: chills, diaphoresis, fatigue, fever, malaise, sweats, weakness, others EENTM: denies: blurred vision, double vision, ear bleeding, ear discharge, ear drainage, ear pain, ear ringing, eye pain, eye redness, hearing loss, mouth pain, mouth swelling, nasal discharge, nose bleeding, nose congestion, nose pa in, photophobia, tearing, throat pain, throat swelling, voice changes, others Respiratory: denies: cough, hemoptysis, orthopnea, SOB at rest, shortness of breath, SOB with excertion, stridor, wheezing, others Cardiovascular: denies: chest pain, dizzy spells, diaphoresis, Dyspnea on exertion, edema, irregular heart beat, left arm pain, lightheadedness, palpitations, PND, syncope, others Gastrointestinal: denies: abdomen distended, abdominal pain, blood streaked bowels, constipated, diarrhea, dysphagia, difficulty swallowing, hematemesis, melena, nausea, poor appetite, poor fluid intake, rectal bleeding, rectal pain, vomiting, others Genitourinary: reports: others (urinary retention); denies: burning, dysuria, flank pain, frequency, hematuria, incontinence, penile discharge, penile sore, pain, testicle pain, testicle swelling, urgency Neurological: denies: dizziness, fainting, headache, left sided numbness, left sided weakness, numbness, paresthesia, pre-existing deficit, right sided numbness, right sided weakness, seizure, speech problems, tingling, tremors, weakness, others Musculoskeletal: denies: back pain, gout, joint pain, joint swelling, muscle pain, muscle stiffness, neck pain, others Integumetry: denies: bruises, change in color, change in hair/nails, dryness, laceration, lesions, lumps, rash, wounds, others Allergic/Immunocompromised: denies: Difficulty Healing, Frequent Infections, Hives, Itching, others Hematologic/Lymphatic: denies: anemia, blood clots, easy bleeding, easy bruising, swollen glands, others Endocrine: denies: excessive hunger, excessive sweating, excessive thirst, excessive urination, flushing, intolerance to cold, intolerance to heat, unexplained weight gain, unexplained weight loss, others Psychiatric: denies: anxiety, bipolar disorder, depression, hopeless, panic disorder, schizophrenia, sleepless, suicidal, others All Other Systems: Reviewed and Negative Physical Exam General Appearance: Moderate Distress HEENT: Normal ENT Inspection, Pharynx Normal, TMs Normal Neck: Full Range of Motion, Non-Tender, Normal, Normal Inspection Respiratory: Chest Non-Tender, Lungs Clear, No Accessory Muscle Use, No Respiratory Distress, Normal Breath Sounds Cardiovascular: No Edema, No JVD, No Murmur, No Gallop, Normal Peripheral Pulses, Regular Rate/Rhythm Breast Exam: Deferred Gastrointestinal: No Organomegaly, No Pulsatile Mass, Normal Bowel Sounds, Soft, Suprapubic, Tenderness Genitalia: Deferred Pelvic: Deferred Rectal: Deferred Extremities: No calf tenderness, Normal capillary refill, Normal inspection, Normal range of motion, Non-tender, No pedal edema Musculoskeletal : Apperance: Normal Neurologic: Alert, test operator II-XII nml as Tested, Motor Weakness, Normal Affect, Normal Mood, No Sensory Deficits Cerebellar Function: Normal Reflexes: Normal Skin: Dry, Normal Color, Warm Lymphatic: No Adenopathy Was a procedure done? Was a procedure done?: No Differential Dx Considerations may include: UTI, urinary retention, generalized weakness X-Ray, Labs, Meds, VS Vital Signs Date Time Temp Pulse Resp B/P (MAP) Pulse Ox O2 Delivery O2 Flow Rate FiO2 11/22/24 15:01 98.1 91 15 135/89 96 98.1 Lab Test 11/22/24 16:40 Range/Units Urine Color Light-orange Yellow Urine Clarity Turbid H Clear Urine pH 6.0 5.0-9.0 Urine Specific [place] 1.019 1.001-1.035 Urine Protein 1+ H Negative Urine Ketones Negative Negative Urine Blood 3+ H Negative /uL Urine Nitrite Negative Negative Urine Bilirubin Negative Negative Urine Urobilinogen Normal Negative mg/dL Urine Leukocyte Esterase 3+ Negative /uL Urine RBC 839 0 - 3 /hpf Urine WBC Clumps Present None Seen /hpf Urine Microscopic WBC 174 H 0-3 /HPF Urine Squamous Epithelial Cells None seen <5 /hpf Urine Bacteria None seen None Seen /hpf Urine Mucus Few None Seen Urine Glucose Normal Normal mg/dL The urine test is positive for a significant UTI The patient will continue taking his antibiotics. The patient has a Evans catheter placed and the patient then had an output of approximately 800 cc of urine The patient states that he does feel much better. The patient is being converted to a leg bag The patient will be discharged with his UTI Images Reviewed?: Images reviewed and evaluated by me Time of 1ST Reevaluation: 16:50 Reevaluation 1ST: Unchanged Patient Education/Counseling: Diagnosis, Treatment, Prognosis, Need For Follow Up Family Education/Counseling: No Family Present SEPSIS Sepsis Screen Date sepsis recognized/suspect: Nov 22, 2024 Time Sepsis recognized/suspect: 1504 Recent Procedure: No On Antibiotic Therapy: No Respiratory Rate >20: No Heart Rate >90: No Temp<36 C (96.8 F) or >38.3 C: No SBP <90 or MAP <65 mmHG: No New Acute Mental Status Change: No Is the patient on CPAP, BIPAP,: No Physician Orders Evans Catheters (11/22/24 ) Vital Signs Date Time Temp Pulse Resp B/P (MAP) Pulse Ox O2 Delivery O2 Flow Rate FiO2 11/22/24 15:01 98.1 91 15 135/89 96 98.1 Departure 1 Departure Time of Disposition: 17:37 Impression: Primary Impression: Urinary retention Additional Impression: UTI (urinary tract infection) Qualified Codes: N30.01 - Acute cystitis with hematuria Disposition: HOME / SELF CARE / HOMELESS Condition: Fair Discharged With: Self Critical Care Note Critical Care Time?: No Stability Stability form required: No Heart Score Heart Score: Heart Score Response (Comments) Value History N/A 0 EKG N/A 0 Age N/A 0 Risk Factors N/A 0 Troponin N/A 0 Total 0 I personally scribed for DELPHINE JACOBS MD ([email or web address]) on 11/22/24 at 16:25. Electronically submitted by Christopher Mejia ([email or web address]). DELPHINE JACOBS MD Nov 22, 2024 16:25
[2024-11-22 17:07] LABS: Urine Protein, UAD 1+ (Negative); Urine WBC Clumps PRESENT /hpf (None Seen)
[2024-11-22 17:59] VITALS: BP 138/78; PULSE 68; RESP 16; TEMP 97.9; O2SAT 96
== END 2024-11-22 18:03 | disposition home or self-care (01) ==
LOC: ER 15:00
DX: N39.0 Urinary tract infection, site not specified (principal); R33.9 Retention of urine, unspecified; Z79.899 Other long term (current) drug therapy
CPT/HCPCS: 51702; 81001

== ENCOUNTER 2025-01-23 19:23 | Emergency (ER) | payer OTHER, MEDICAID ==
[~2025-01-23] VITALS: Ht 182.9 cm; Wt 68.0 kg
--- NOTE | 2025-01-23 19:52 | ED.PDOC ---
History of Present Illness HPI Comments 84 y/o M presents with c/c no urine output for 1x day. Patient reports inability to urinate since yesterday after having his Evans catheter removed. He reports associated nonradiating, lower abdominal pain. No recent injuries. Denies any penile pain, nausea, vomiting, fever, chills, or further acute symptoms. Chief Complaint: Urinary Time Seen by MD: 20:00 Reviewed Notes: Nurses Notes, Medications, Allergies Allergies: Coded Allergies: NO KNOWN ALLERGIES (Unverified , 10/01/24) Home Meds Active Scripts Nitrofurantoin Monohydrate Mac (Macrobid) 100 Mg Cap, 100 MG PO BID for 10 Days, #20 CAP Prov:ANNAMARIA MENA MD 11/18/24 Tamsulosin Hcl (Flomax) 0.4 Mg Cap, 1 CAP PO QPM, #30 CAP Prov:SHALINI ECHEVERRIA MD 10/02/24 Finasteride (Finasteride) 5 Mg Tab, 1 TAB PO DAILY, #90 TAB 1 Refill Prov:SHALINI ECHEVERRIA MD 10/02/24 Information Source: Patient Mode of Arrival: Ambulatory Severity: Moderate Timing: Hours Duration: Since onset Prehospital treatment: None Past Medical History Surgical History (Other): Evans catheter Family History Family History: Reviewed,noncontributory to illness, Unknown Social History Smoker: Non-Smoker Alcohol: Denies ETOH Use Drugs: Denies Drug Use Lives In: Home All Other Systems: Reviewed and Negative (Comprehensive review of systems are negative unless stated in HPI) Physical Exam General Appearance: No Apparent Distress, Normal HEENT: Pharynx Normal Neck: Full Range of Motion, Non-Tender Respiratory: Lungs Clear, No Respiratory Distress, Normal Breath Sounds Cardiovascular: No Murmur, Normal Peripheral Pulses, Regular Rate/Rhythm Breast Exam: Deferred Gastrointestinal: Non Tender, Soft, Suprapubic (Tenderness and distended) Genitalia: Deferred Pelvic: Deferred Rectal: Deferred Extremities: Normal range of motion Musculoskeletal : Apperance: Normal Neurologic: Alert, No Motor Deficits, Normal Affect, Normal Mood, No Sensory Deficits Cerebellar Function: Normal Reflexes: NOT DONE Skin: Dry, Normal Color, Warm Lymphatic: No Adenopathy Was a procedure done? Was a procedure done?: No Differential Dx Considerations may include: Post-op complication, ureteral stone obstruction, nephrolithiasis, UTI, among others X-Ray, Labs, Meds, VS Vital Signs Date Time Temp Pulse Resp B/P (MAP) Pulse Ox O2 Delivery O2 Flow Rate FiO2 01/23/25 20:38 97.4 67 16 158/85 (109) 98 97.4 01/23/25 19:23 98.3 71 18 149/89 98 98.3 X-Ray, Labs, Meds, VS Comment Script trial of antibiotics, history of chronic UTIs. Advised to take medication as prescribed side effects discussed. Advised to follow up with his PCP in two days, urgent care, or back in the ER for re-evaluation.. Patient was also advised to return to the ER for increasing pain, numbness, weakness, swel ling, fever or chills. Patient indicates understanding and agrees with discharge plan of care. Time of 1ST Reevaluation: 20:30 Reevaluation 1ST: Unchanged Time of 2ND Reevaluation: 21:01 Reevaluation 2ND: Improved Patient Education/Counseling: Diagnosis, Treatment, Need For Follow Up Family Education/Counseling: No Family Present SEPSIS Sepsis Screen Date sepsis recognized/suspect: Jan 23, 2025 Time Sepsis recognized/suspect: 1922 Recent Procedure: No On Antibiotic Therapy: No Respiratory Rate >20: No Heart Rate >90: No Temp<36 C (96.8 F) or >38.3 C: No SBP <90 or MAP <65 mmHG: No New Acute Mental Status Change: No Is the patient on CPAP, BIPAP,: No Vital Signs Date Time Temp Pulse Resp B/P (MAP) Pulse Ox O2 Delivery O2 Flow Rate FiO2 01/23/25 20:38 97.4 67 16 158/85 (109) 98 97.4 01/23/25 19:23 98.3 71 18 149/89 98 98.3 Departure 1 Departure Time of Disposition: 20:59 Impression: Primary Impression: Urinary retention Additional Impression: UTI (urinary tract infection) Qualified Codes: T83.511D - Infection and inflammatory reaction due to indwelling urethral catheter, subsequent encounter; N39.0 - Urinary tract infection, site not specified Disposition: HOME / SELF CARE / HOMELESS Condition: Stable e-Prescriptions Sulfamethoxazole W/Trimethopri (Bactrim Ds Tablet) 1 Tab Tb 1 TAB PO BID for 7 Days, #14 TAB Prov: NEGRITA LOMBARDI 01/23/25 Discharged With: Self Critical Care Note Critical Care Time?: No Stability Stability form required: No Heart Score Heart Score: Heart Score Response (Comments) Value History N/A 0 EKG N/A 0 Age N/A 0 Risk Factors N/A 0 Troponin N/A 0 Total 0 I personally scribed for ER ([email or web address]) on 01/23/25 at 19:52. Electronically submitted by Wilmer Prescott ([email or web address]). ER Jan 23, 2025 19:52 NEGRITA LOMBARDI [facility] Jan 23, 2025 20:33
[2025-01-23 20:38] VITALS: BP 158/85; TEMP 97.4
[2025-01-23] MEDS ORDERED: BACDST PO (21:00)
[2025-01-23 21:07] VITALS: PULSE 67; RESP 16; O2SAT 98
== END 2025-01-23 21:33 | disposition home or self-care (01) ==
LOC: EDUNIT# 19:23 → ER 19:23 → EDBD 19:23 → ER 21:33
DX: N39.0 Urinary tract infection, site not specified (principal); R33.9 Retention of urine, unspecified; Z79.899 Other long term (current) drug therapy
CPT/HCPCS: 51702; 99283; A4315

== ENCOUNTER 2025-03-24 08:41 | Emergency (ER) | payer OTHER, MEDICAID ==
[~2025-03-24] VITALS: Ht 182.9 cm; Wt 67.7 kg
[2025-03-24 10:00] VITALS: BP 123/76; PULSE 77; RESP 16; TEMP 98.2; O2SAT 98
[2025-03-24] MEDS ORDERED: BACDST PO (10:03)
--- NOTE | 2025-03-24 10:03 | ED.PDOC ---
General HPI Comments A 84 YEAR OLD MALE PRESENTS TO THE ED WITH COMPLAINT OF PROBLEM WITH VELASQUEZ CATHETER. PATIENT STATES HE HAS A VELASQUEZ CATHETER PLACED 1 MONTH PRIOR AND STATES YESTERDAY VELASQUEZ CATHETER IS BLOCKED. PATIENT STATES THAT HE HAS BEEN HAVING URINE LEAKING FROM VELASQUEZ CATHETER AND CAME TODAY FOR EVALUATION. PATIENT DENIES FEVER, CHILLS, SHORTNESS OF BREATH, CHEST PAIN, ABDOMINAL PAIN, NAUSEA, VOMITING, HEADACHE, OR OTHER COMPLAINTS. NO OTHER SYMPTOMS OR MODIFYING FACTORS AT THIS TIME. PATIENT IS ALERT, ORIENTED X 4, AND HAS STEADY GAIT. Chief Complaint: Urinary Time Seen by MD: 10:00 Reviewed notes: Medications, Allergies Allergies: Coded Allergies: NO KNOWN ALLERGIES (Unverified , 10/01/24) Home Meds Active Scripts Sulfamethoxazole W/Trimethopri (Bactrim Ds Tablet) 1 Tab Tb, 1 TAB PO BID for 10 Days, #20 TAB Prov:ANGEL CARRILLO 03/24/25 Nitrofurantoin Monohydrate Mac (Macrobid) 100 Mg Cap, 100 MG PO BID for 10 Days, #20 CAP Prov:ANNAMARIA MENA MD 11/18/24 Tamsulosin Hcl (Flomax) 0.4 Mg Cap, 1 CAP PO QPM, #30 CAP Prov:SHALINI ECHEVERRIA MD 10/02/24 Finasteride (Finasteride) 5 Mg Tab, 1 TAB PO DAILY, #90 TAB 1 Refill Prov:SHALINI ECHEVERRIA MD 10/02/24 Information Source: Patient Mode of Arrival: Ambulatory Brought in by: SELF Severity: Mild, Moderate Inability to void: Complete Timing: Days Duration: Since onset, Days Prehospital treatment: None Onset: Spontaneous Symptoms: Other (CATHETER LEAKING ) History of: BPH Location: None Penile discharge: None Modifying factors: None associated signs and symptoms: None Past Medical History PAST MEDICAL HISTORY: Denies Surgical History: Denies all surgeries Family History Family History: Reviewed,noncontributory to illness, Unknown Social History Smoker: Non-Smoker Alcohol: Denies ETOH Use Drugs: Denies Drug Use Lives In: Home Constitutional: denies: chills, diaphoresis, fatigue, fever, malaise, sweats, weakness, others EENTM: denies: blurred vision, double vision, ear bleeding, ear discharge, ear drainage, ear pain, ear ringing, eye pain, eye redness, hearing loss, mouth pain, mouth swelling, nasal discharge, nose bleeding, nose congestion, nose pain, photophobia, tearing, throat pain, throat swelling, voice changes, others Respiratory: denies: cough, hemoptysis, orthopnea, SOB at rest, shortness of breath, SOB with excertion, stridor, wheezing, others Cardiovascular: denies: chest pain, dizzy spells, diaphoresis, Dyspnea on exertion, edema, irregular heart beat, left arm pain, lightheadedness, palpitations, PND, syncope, others Gastrointestinal: denies: abdomen distended, abdominal pain, blood streaked bowels, constipated, diarrhea, dysphagia, difficulty swallowing, hematemesis, melena, nausea, poor appetite, poor fluid intake, rectal bleeding, rectal pain, vomiting, others Genitourinary: reports: others (VELASQUEZ CATHETER BLOCKAGE); denies: burning, dysuria, flank pain, frequency, hematuria, incontinence, penile discharge, penile sore, pain, testicle pain, testicle swelling, urgency Neurological: denies: dizziness, fainting, headache, left sided numbness, left sided weakness, numbness, paresthesia, pre-existing deficit, right sided numbness, right sided weakness, seizure, speech problems, tingling, tremors, weakness, others Musculoskeletal: denies: back pain, gout, joint pain, joint swelling, muscle pain, muscle stiffness, neck pain, others Integumetry: denies: bruises, change in color, change in hair/nails, dryness, laceration, lesions, lumps, rash, wounds, others Allergic/Immunocompromised: denies: Difficulty Healing, Frequent Infections, Hives, Itching, others Hematologic/Lymphatic: denies: anemia, blood clots, easy bleeding, easy bruising, swollen glands, others Endocrine: denies: excessive hunger, excessive sweating, excessive thirst, excessive urination, flushing, intolerance to cold, intolerance to heat, unexplained weight gain, unexplained weight loss, others Psychiatric: denies: anxiety, bipolar disorder, depression, hopeless, panic disorder, schizophrenia, sleepless, suicidal, others All Other Systems: Reviewed and Negative Physical Exam General Appearance: No Apparent Distress, Normal HEENT: Normal ENT Inspection, PERRL/EOMI, Pharynx Normal, TMs Normal Neck: Full Range of Motion, Non-Tender, Normal, Normal Inspection Respiratory: Chest Non-Tender, Lungs Clear, No Accessory Muscle Use, No Respira tory Distress, Normal Breath Sounds Cardiovascular: No Edema, No JVD, No Murmur, No Gallop, Normal Peripheral Pulses, Regular Rate/Rhythm Breast Exam: Deferred Gastrointestinal: No Organomegaly, Non Tender, No Pulsatile Mass, Normal Bowel Sounds, Soft Genitalia: Other (_+CATHETER LEAKING. ) Pelvic: Deferred Rectal: Deferred Extremities: No calf tenderness, Normal capillary refill, Normal inspection, Normal range of motion, Non-tender, No pedal edema Musculoskeletal : Apperance: Normal Neurologic: Alert, lead generation representative II-XII nml as Tested, No Motor Deficits, Normal Affect, Normal Mood, No Sensory Deficits Cerebellar Function: Normal Reflexes: Normal Skin: Dry, Normal Color, Warm Peripheral Pulses: 2+ carotid (R), 2+ carotid (L), 2+ dorsalis pedis (R), 2+ dorsalis pedis (L) Lymphatic: No Adenopathy Was a procedure done? Was a procedure done?: No Differential Diagnosis Kidney stone (Female): N/A Kidney stone (Male): N/A Penile/Scrotal: N/A Urinary Problem (Male): Bladder Obstruction, Urinary Retention, UTI, Other (VELASQUEZ CATHETER BLOCKAGE) X-Ray, Labs, Meds, VS Vital Signs Date Time Temp Pulse Resp B/P (MAP) Pulse Ox O2 Delivery O2 Flow Rate FiO2 03/24/25 10:00 77 16 98 Room Air 03/24/25 10:00 98.2 77 16 123/76 (92) 98 98.2 03/24/25 08:48 98.0 79 15 175/105 99 98.0 X-Ray, Labs, Meds, VS Comment COURSE: EXTERNAL MEDICAL RECORDS REVIEWED: [NONE] INDEPENDENT HISTORIANS: [NONE] SOCIAL DETERMINANTS OF HEALTH: [NONE] LABS ORDERED: URINALYSIS REVIEWED AND INTERPRETED RESULTS: NONE IMAGING ORDERED: NONE TREATMENTS ORDERED: VELASQUEZ CATHETER REPLACEMENT PROCEDURES PERFORMED: NONE CRITICAL CARE TIME: NONE I HAVE DISCUSSED THE PATIENT WITH THE ATTENDING PHYSICIAN DR. MASTERSON AND HE AGREES WITH THE PATIENT'S PLAN OF CARE AND DISPOSITION. BASED ON HISTORY OF PRESENT ILLNESS, AND PHYSICAL EXAM, PATIENT WILL BE DISCHARGED HOME. DISCUSSED PLAN FOR DISCHARGE HOME WITH RX [SEPTRA DS]. MEDICATION WARNINGS GIVEN. SHARED DECISION MAKING: DISCUSSED WITH PATIENT THAT THEIR WORKUP WAS NORMAL. PATIENT INSTRUCTED TO FOLLOW UP WITH PRIMARY CARE PROVIDER IN 1-2 DAYS FOR RE- EVALUATION OF SYMPTOMS. PATIENT VERBALIZES UNDERSTANDING TO RETURN TO ED FOR NEW OR WORSENING SYMPTOMS OR IF FOLLOW UP WITH PCP CANNOT BE OBTAINED. PATIENT FEELS COMFORTABLE GOING HOME AT THIS TIME. ALL QUESTIONS ADDRESSED AT TIME OF DISCHARGE. Time of 1ST Reevaluation: 10:30 Reevaluation 1ST: Improved Patient Education/Counseling: Diagnosis, Treatment, Need For Follow Up Family Education/Counseling: Diagnosis, Treatment, No Family Present Medical Screening: No EMC Exist At This Time SEPSIS Sepsis Screen Date sepsis recognized/suspect: Mar 24, 2025 Time Sepsis recognized/suspect: 08 Recent Procedure: No On Antibiotic Therapy: No Respiratory Rate >20: No Heart Rate >90: No Temp<36 C (96.8 F) or >38.3 C: No SBP <90 or MAP <65 mmHG: No New Acute Mental Status Change: No Is the patient on CPAP, BIPAP,: No Physician Orders Ok To Change Velasquez (03/24/25 09:55) Urinalysis (03/24/25 09:55) Vital Signs Date Time Temp Pulse Resp B/P (MAP) Pulse Ox O2 Delivery O2 Flow Rate FiO2 03/24/25 10:00 77 16 98 Room Air 03/24/25 10:00 98.2 77 16 123/76 (92) 98 98.2 03/24/25 08:48 98.0 79 15 175/105 99 98.0 Departure 1 Departure Time of Disposition: 10:34 Impression: Primary Impression: Encounter for Velasquez catheter replacement Additional Impression: UTI (urinary tract infection) Qualified Codes: T83.511A - Infection and inflammatory reaction due to indwelling urethral catheter, initial encounter; N39.0 - Urinary tract infection, site not specified Disposition: 01 HOME / SELF CARE / HOMELESS Condition: Stable Additional Instructions: INSTRUCTIONS: FOLLOW-UP WITH PCP IN 1 TO 2 DAYS. TAKE MEDICATIONS PRESCRIBED. RETURN TO ED FOR ANY NEW OR WORSENING SYMPTOMS. e-Prescriptions Sulfamethoxazole W/Trimethopri (Bactrim Ds Tablet) 1 Tab Tb 1 TAB PO BID for 10 Days, #20 TAB Prov: ANGEL CARRILLO 03/24/25 Discharged With: Self Critical Care Note Critical Care Time?: No Stability Stability form required: No Heart Score Heart Score: Heart Score Response (Comments) Value History N/A 0 EKG N/A 0 Age N/A 0 Risk Factors N/A 0 Troponin N/A 0 Total 0 I personally scribed for ANGEL CARRILLO ([email or web address]) on 03/24/25 at 10:03. Electronically submitted by Tuyet Dockery ([email or web address]). ANGEL CARRILLO Mar 24, 2025 10:03
[2025-03-24 11:10] LABS: Urine Protein, UAD 1+ (Negative)
== END 2025-03-24 10:35 | disposition home or self-care (01) ==
LOC: ER 08:41
DX: T83.511A Infection and inflammatory reaction due to indwelling urethral catheter, initial encounter (principal); N39.0 Urinary tract infection, site not specified; Z79.899 Other long term (current) drug therapy
CPT/HCPCS: 51702; 81001; 99283; A4315